=== PATIENT | male | born 1995 | race Hispanic/Latino ===

== ENCOUNTER → 2021-09-20 | Outpatient (REF) | LOC: M LABSMTC 13:06 | PROVIDERS: ATTEND Pediatrics | DX: Z11.52 Encounter for screening for COVID-19 (principal) ==

== ENCOUNTER 2021-12-20 23:24 | Emergency (ER) | payer OTHER ==
[~2021-12-20] VITALS: Ht 185.4 cm; Wt 90.9 kg
[2021-12-20 23:25] VITALS: BP 134/78
[2021-12-21] MEDS ORDERED: CLOTRIMAZOLE 1% TOPICAL CREAM 30GM TOP STA (01:03)
[2021-12-21] MEDS ORDERED: [UNRECOGNIZED DRUG - CODE] TOP (01:10)
== END 2021-12-21 02:07 | disposition home or self-care (01) ==
LOC: M ED 23:24
DX: B35.4 Tinea corporis (principal)